=== PATIENT | male | born 1970 | race Caucasian/White ===

== ENCOUNTER → 2022-07-24 13:37 | Outpatient (BNVA) | payer OTHER, SELFPAY | PROVIDERS: Visit Provider Psychiatry & Neurology Neurology | DX: G47.10 Hypersomnia, unspecified (principal); G47.00 Insomnia, unspecified; G25.81 Restless legs syndrome; R06.83 Snoring; M79.671 Pain in right foot; M79.672 Pain in left foot | CPT/HCPCS: 99202 ==

== ENCOUNTER → 2022-08-10 13:24 | Outpatient (REF) | payer OTHER, SELFPAY | LOC: HO.SL 13:24 | PROVIDERS: Visit Provider Psychiatry & Neurology Neurology | DX: Z13.89 Encounter for screening for other disorder (principal) ==